=== PATIENT | female | born 1955 | race Caucasian/White ===

== ENCOUNTER 2019-01-01 16:30 | Emergency (ER) | payer MEDICARE, OTHER ==
[~2019-01-01] VITALS: Ht 165.1 cm; Wt 84.1 kg
[~2019-01-01 16:30] MED LIST: HYDR-3780 PO; HYDR-4383 PO; PANT40TA4 PO; SULI200T97 PO; SYN0.088T PO
[2019-01-01 16:47] VITALS: BP 175/97
[2019-01-01] MEDS ORDERED: LOPE2CAP PO (17:27)
== END 2019-01-01 17:38 | disposition home or self-care (01) ==
LOC: ER 16:31
DX: R19.7 Diarrhea, unspecified (principal); T37.0X5A Adverse effect of sulfonamides, initial encounter; G43.909 Migraine, unspecified, not intractable, without status migrainosus; I25.2 Old myocardial infarction; J44.9 Chronic obstructive pulmonary disease, unspecified; K21.9 Gastro-esophageal reflux disease without esophagitis; E03.9 Hypothyroidism, unspecified; G89.29 Other chronic pain; M06.9 Rheumatoid arthritis, unspecified; Z98.61 Coronary angioplasty status; Z90.49 Acquired absence of other specified parts of digestive tract; Z98.890 Other specified postprocedural states; Z88.0 Allergy status to penicillin; Z88.2 Allergy status to sulfonamides; Z88.1 Allergy status to other antibiotic agents; Z91.011 Allergy to milk products; Z88.8 Allergy status to other drugs, medicaments and biological substances; Z79.899 Other long term (current) drug therapy; Z60.2 Problems related to living alone; Y92.89 Other specified places as the place of occurrence of the external cause
CPT/HCPCS: 99282

== ENCOUNTER 2019-06-17 15:59 | Emergency (ER) | payer MEDICARE ==
[~2019-06-17] VITALS: Ht 165.1 cm; Wt 79.5 kg
[~2019-06-17 15:59] MED LIST changes: +ALBU18HF2 INH; +LOPE2CAP PO
[2019-06-17] MEDS ORDERED: dexamethasone sod phosphate 10mg/ml inj IV STA (16:31)
[2019-06-17] MEDS ORDERED: ondansetron/PF 4mg/2ml inj IV ONE (16:35)
[2019-06-17] MEDS ORDERED: metoprolol tartrate 1mg/ml inj IV ONE (16:35)
[2019-06-17] MEDS ORDERED: ketorolac tromethamine 15mg/ml inj. IV ONE (16:35)
[2019-06-17] MEDS ORDERED: normal saline 1000ML IV soln IVB ONE (16:35)
[2019-06-17] MEDS ORDERED: morphine 4 MG/ML inj SYRINge IV ONE (19:10)
[2019-06-17 20:22] VITALS: BP 139/89
== END 2019-06-17 20:25 | disposition home or self-care (01) ==
LOC: ER 16:00
DX: G43.909 Migraine, unspecified, not intractable, without status migrainosus (principal); R42 Dizziness and giddiness; I25.2 Old myocardial infarction; J44.9 Chronic obstructive pulmonary disease, unspecified; K21.9 Gastro-esophageal reflux disease without esophagitis; E03.9 Hypothyroidism, unspecified; G89.29 Other chronic pain; M06.9 Rheumatoid arthritis, unspecified; Z90.49 Acquired absence of other specified parts of digestive tract; Z98.61 Coronary angioplasty status; Z98.890 Other specified postprocedural states; Z88.0 Allergy status to penicillin; Z88.2 Allergy status to sulfonamides; Z88.1 Allergy status to other antibiotic agents; Z88.6 Allergy status to analgesic agent; Z91.011 Allergy to milk products; Z88.8 Allergy status to other drugs, medicaments and biological substances; Z79.899 Other long term (current) drug therapy
CPT/HCPCS: 96361; 96374; 96375; 99283; J1100; J1885; J2270; J2405; J7030; 99285; J3490

== ENCOUNTER 2019-06-20 14:40 | Inpatient (IN) | payer MEDICARE ==
[~2019-06-20] VITALS: Ht 165.1 cm; Wt 84.6 kg
[2019-06-20 15:35] LABS: BASOPHILS # (AUTO) 0.1 X10'3 (0-0.2); BASOPHILS % (AUTO) 0.7 % (0-1); HEMOGLOBIN 12.9 g/dl (12.0-16.0); MONOCYTES # (AUTO) 1.5 X10'3 (0-0.9); NEUTROPHILS % (AUTO) 63.7 % (42-75)
[2019-06-20 15:36] LABS: EOSINOPHILS # (AUTO) 0.2 X10'3 (0-0.9); EOSINOPHILS % (AUTO) 1.6 % (0-6); HEMATOCRIT 38.3 % (35.0-45.0); LYMPHOCYTES % (AUTO) 22.8 % (21-51); MEAN CORPUSCULAR HGB CONC 33.6 g/dL (33.0-36.5); MEAN CORPUSCULAR VOLUME 95.1 FL (78-98); MEAN PLATELET VOLUME 11.2 FL (7.4-10.4); MONOCYTES % (AUTO) 11.2 % (2-12); NEUTROPHILS # (AUTO) 8.3 X10'3 (1.8-7.7); PLATELET COUNT 161 X10'3 (140-440); RED BLOOD COUNT 4.03 X10'6 (4.20-5.60); RED CELL DISTRIBUTION WIDTH 12.6 % (11.5-14.5)
[2019-06-20 15:49] LABS: PARTIAL THROMBOPLASTIN TIME 23 SECONDS (22-32)
[2019-06-20 15:52] LABS: ALANINE AMINOTRANSFERASE 34 U/L (12-78); ALBUMIN 3.5 G/DL (3.4-5.0); ALBUMIN/GLOBULIN RATIO 1.1 (1.1-1.5); ALKALINE PHOSPHATASE 120 IU/L (46-116); ANION GAP 9 (8-16); ASPARTATE AMINO TRANSFERASE 29 U/L (10-37); BILIRUBIN,TOTAL 0.4 MG/DL (0.1-1.0); BLOOD UREA NITROGEN 17 MG/DL (7-18); BUN/CREATININE RATIO 12.3 (6.6-38.0); CALCIUM 8.2 MG/DL (8.5-10.1); CHLORIDE 109 MMOL/L (99-107); CREATININE 1.38 MG/DL (0.40-0.90); GLUCOSE 84 MG/DL (70-104); POTASSIUM 3.3 MMOL/L (3.5-5.1); SODIUM 145 MMOL/L (135-145); TOTAL CARBON DIOXIDE 27.1 MMOL/L (24-32); TOTAL PROTEIN 6.8 G/DL (6.4-8.2); eGFR 39 ML/MIN
[2019-06-20 16:06] LABS: LARGE PLATELETS FEW; PLATELET ESTIMATE NORMAL
[2019-06-20] MEDS ORDERED: mag hydrox/Alum hydrox/simeth 30ml oral suspension PO ONE (17:00)
[2019-06-20] MEDS ORDERED: LIDOcaine Viscous 15ml cup PO ONE (17:00)
[2019-06-20] MEDS ORDERED: famotidine 20mg tablet PO ONE (17:00)
[2019-06-20 17:37] LABS: LIPASE 57 U/L (73-393)
[2019-06-20] MEDS ORDERED: mag hydrox/Alum hydrox/simeth 30ml oral suspension PO PRN (18:05)
[2019-06-20] MEDS: K and/or MAG REPLACEMENT MC SCH (18:05)
[2019-06-20] MEDS ORDERED: potassium Cl 20 mEq SR tablet PO PRN (18:05)
[2019-06-20] MEDS ORDERED: ondansetron/PF 4mg/2ml inj IV PRN (18:05)
[2019-06-20] MEDS ORDERED: magnesium Cl slow-release 64mg tablet PO PRN (18:05)
[2019-06-20] MEDS ORDERED: magnesium 2GM in 50ml NS 50 ML IV PRN (18:05)
[2019-06-20] MEDS ORDERED: acetaminophen 325mg tablet PO PRN (18:05)
[2019-06-20] MEDS ORDERED: regadenoson 0.4mg/5ml syringe IV PRN (18:05)
[2019-06-20] MEDS ORDERED: diphenhydrAMINE 25mg capsule PO PRN (18:05)
[2019-06-20] MEDS ORDERED: nitroGLYCERIN 0.4mg SUBLingual tab SL PRN (18:05)
[2019-06-20] MEDS ORDERED: magnesium 4gm in 100ml NS 100 ML IV PRN (18:05)
[2019-06-20] MEDS ORDERED: morphine 2 MG/ML inj. syringe IV PRN ×2 (18:05)
[2019-06-20] MEDS ORDERED: aminophylline 250mg/10ml inj. IV PRN (18:05)
[2019-06-20] MEDS ORDERED: magnesium hydroxide 30ml (MOM) UD suspension PO PRN (18:05)
[2019-06-20] MEDS ORDERED: HYDROcodone/acetaminophen 5mg/325mg tablet PO PRN (18:05)
[2019-06-20] MEDS ORDERED: potassium CL 10mEq/100ml bag 100 ML IV PRN ×2 (18:05)
[2019-06-20] MEDS ORDERED: metoprolol tartrate 1mg/ml inj IV PRN (18:05)
[2019-06-20] MEDS ORDERED: HYDROcodone/acetaminophen 10/325mg tab PO PRN (18:05)
[2019-06-20] MEDS ORDERED: bisacodyl 10mg suppository rectal RC PRN (18:05)
[2019-06-20] MEDS ORDERED: aspirin 325mg tablet PO ONE (18:10)
[2019-06-20] MEDS: normal saline 1000ml 1,000 ML IV SCH ×2 (18:18→21:16)
[2019-06-20] MEDS ORDERED: ALBU8.5H8 INH (18:37)
[2019-06-20] MEDS ORDERED: OMEP40CA13 PO (19:10)
[2019-06-20] MEDS ORDERED: HYDR10TA PO (19:14)
[2019-06-20] MEDS ORDERED: ONDA4TAB6 PO (19:18)
[2019-06-20] MEDS ORDERED: temazepam 15mg capsule PO PRN (21:00)
[2019-06-20] MEDS: heparin, porcine 5000 units/ml vial SQ SCH (21:12)
[2019-06-20] MEDS: nitroGLYCERIN 0.4mg SUBLingual tab SL PRN (21:15)
[2019-06-20] MEDS: potassium Cl 20 mEq SR tablet PO PRN (21:17)
[2019-06-20 22:30] VITALS: BP 193/90
--- NOTE | 2019-06-20 22:30 | NUR ---
Patient arrived to unit at approximately 2230 via gurney. Patient ambulated to hospital bed, vital signs taken, tele box 57 placed on patient, MRSA swab completed, 2 RN skin check complete, DART complete.
[2019-06-20 22:35] VITALS: BP 207/87
[2019-06-20 22:40] VITALS: BP 161/74
[2019-06-20] MEDS: amLODIPine 5mg tablet PO SCH (23:37)
[2019-06-20] MEDS: pantoprazole 40 MG vial IV SCH (23:38)
[2019-06-20 23:59] LABS: CLARITY,URINE CLEAR (Clear); COLOR,URINE YELLOW (Yellow); GLUCOSE, URINE NEGATIVE (Neg); KETONES,URINE NEGATIVE (Neg); LEUKOCYTE ESTERASE ,URINE NEGATIVE (Neg); NITRITES, URINE NEGATIVE (Neg); OCCULT BLOOD,URINE NEGATIVE (Neg); PROTEIN,URINE NEGATIVE (Neg); UROBILINOGEN,URINE 0.2 E.U/dL (0.2-1.0)
[2019-06-21] VITALS (21 sets, daily range): BP systolic 101–211; BP diastolic 54–95
[2019-06-21 00:02] LABS: UA COLLECTION TYPE NON-SPECIFIED
[2019-06-21] MEDS: potassium Cl 20 mEq SR tablet PO PRN (01:24)
[2019-06-21] MEDS: nitroGLYCERIN 0.4mg SUBLingual tab SL PRN ×2 (02:05→02:14)
[2019-06-21] MEDS: acetaminophen 325mg tablet PO PRN (02:07)
[2019-06-21 05:42] LABS: BASOPHILS # (AUTO) 0.1 X10'3 (0-0.2); BASOPHILS % (AUTO) 0.8 % (0-1); EOSINOPHILS # (AUTO) 0.4 X10'3 (0-0.9); EOSINOPHILS % (AUTO) 4.2 % (0-6); HEMATOCRIT 37.4 % (35.0-45.0); HEMOGLOBIN 12.7 g/dl (12.0-16.0); LYMPHOCYTES # (AUTO) 2.6 X10'3 (1.1-4.8); LYMPHOCYTES % (AUTO) 25.4 % (21-51); MEAN CORPUSCULAR HEMOGLOBIN 32.2 PG (27.0-31.0); MEAN CORPUSCULAR HGB CONC 33.9 g/dL (33.0-36.5); MEAN CORPUSCULAR VOLUME 94.9 FL (78-98); MEAN PLATELET VOLUME 11.7 FL (7.4-10.4); MONOCYTES # (AUTO) 1.1 X10'3 (0-0.9); NEUTROPHILS # (AUTO) 6.1 X10'3 (1.8-7.7); NEUTROPHILS % (AUTO) 58.6 % (42-75); PLATELET COUNT 146 X10'3 (140-440); RED BLOOD COUNT 3.94 X10'6 (4.20-5.60); RED CELL DISTRIBUTION WIDTH 12.9 % (11.5-14.5); WHITE BLOOD COUNT 10.3 X10'3 (4.5-11.0)
--- NOTE | 2019-06-21 06:23 | NUR ---
Patient in room PCU 3012. I have received report from DEBORAH Bower and had the opportunity to ask questions and assume patient care.
--- NOTE | 2019-06-21 06:29 | NUR ---
Problems reprioritized. Patient report given, questions answered & plan of care reviewed with DEBORAH Keller .
[2019-06-21 06:36] LABS: ALANINE AMINOTRANSFERASE 28 U/L (12-78); ALBUMIN 3.1 G/DL (3.4-5.0); ALKALINE PHOSPHATASE 108 IU/L (46-116); ANION GAP 9 (8-16); ASPARTATE AMINO TRANSFERASE 23 U/L (10-37); BILIRUBIN,TOTAL 0.7 MG/DL (0.1-1.0); BLOOD UREA NITROGEN 14 MG/DL (7-18); BUN/CREATININE RATIO 13.2 (6.6-38.0); CALCIUM 8.4 MG/DL (8.5-10.1); CHLORIDE 110 MMOL/L (99-107); CREATININE 1.06 MG/DL (0.40-0.90); GLUCOSE 77 MG/DL (70-104); POTASSIUM 3.9 MMOL/L (3.5-5.1); SODIUM 146 MMOL/L (135-145); TOTAL CARBON DIOXIDE 27.4 MMOL/L (24-32); TOTAL PROTEIN 6.1 G/DL (6.4-8.2); eGFR 53 ML/MIN
[2019-06-21 06:44] LABS: CHOL/HDL RATIO 2.8 (0.00-4.99); CHOLESTEROL 165 MG/DL (0-200); HDL CHOLESTEROL 59 MG/DL (35-60); LDL CHOLESTEROL 83 MG/DL (50-100); MAGNESIUM 2.1 MG/DL (1.5-2.4); PHOSPHORUS 3.4 MG/DL (2.3-4.5); TRIGLYCERIDES 146 MG/DL (20-135)
[2019-06-21] MEDS: pantoprazole 40 MG vial IV SCH (07:01)
[2019-06-21] MEDS: amLODIPine 5mg tablet PO SCH (07:33)
[2019-06-21] MEDS: heparin, porcine 5000 units/ml vial SQ SCH ×2 (08:00→19:42)
[2019-06-21] MEDS: nitroGLYCERIN 0.2mg/hour patch TD SCH (08:00)
[2019-06-21] MEDS: K and/or MAG REPLACEMENT MC SCH (08:00)
[2019-06-21] MEDS: normal saline 1000ml 1,000 ML IV SCH (08:06)
[2019-06-21] MEDS ORDERED: pneumococcal 23-VAL P-sac vacc 25 mcg/0.5ml vial IMVAC ONE (10:00)
[2019-06-21] MEDS ORDERED: non-formulary drug (Ondansetron Hcl (Zofran) 1 TAB) PO PRN (11:55)
[2019-06-21] MEDS ORDERED: ondansetron 4mg rapidly disintigrating tab PO PRN (12:00)
--- NOTE | 2019-06-21 12:45 | NUR ---
pt arrived back from [facility]. VSS, headache, was medicated for pain, lunch provided. Will continue to monitor
[2019-06-21] MEDS: lisinopril 20mg tablet PO SCH (12:49)
--- NOTE | 2019-06-21 13:44 | NUR ---
Malnutrition consult: Pt admit w/ chest pain hx COPD, CVA, and pancreatitis. Pt current wt 175kg supposed to be [address] d/w RN. RN agrees to scaled wt today since no scaled wt this admit. Pt has normal strength, no edema/wounds, no significant wt hx present, and NPO at this time for test. At this time pt lacks minimum malnutrition criteria. Will continue to monitor. Addendum: 06/21/19 at [address] Amended: Links added.
[2019-06-21] MEDS: levoTHYROXINE 88mcg tablet PO SCH (16:09)
[2019-06-21] MEDS ORDERED: NOR5T PO (18:05)
[2019-06-21] MEDS ORDERED: LISI-600 PO (18:05)
--- NOTE | 2019-06-21 18:36 | NUR ---
Problems reprioritized. Patient report given, questions answered & plan of care reviewed with DEBORAH Maldonado.
--- NOTE | 2019-06-21 18:50 | NUR ---
Patient in room PCU 3012. I have received report from Joel CABRERA, and had the opportunity to ask questions and assume patient care.
[2019-06-21] MEDS: hydrocortisone 10mg tablet PO SCH (20:29)
--- NOTE | 2019-06-21 22:30 | NUR ---
Patient in room PCU 3012. I have received report from Joel CABRERA and had the opportunity to ask questions and assume patient care.
[2019-06-22] VITALS (8 sets, daily range): BP systolic 90–146; BP diastolic 53–101
--- NOTE | 2019-06-22 03:30 | NUR ---
pt c/o of tightness on chest and SOB, contacted Dr. Jackson and got an once time order of albuterol breathing tx
[2019-06-22] MEDS: acetaminophen 325mg tablet PO PRN (04:34)
[2019-06-22] MEDS ORDERED: albuterol 2.5 MG/3 ML nebule NEB ONE (05:30)
[2019-06-22] MEDS: pantoprazole 40 MG vial IV SCH ×2 (05:30→08:00)
--- NOTE | 2019-06-22 06:13 | NUR ---
Problems reprioritized. Patient report given, questions answered & plan of care reviewed with Matty CABRERA.
[2019-06-22 06:16] LABS: BASOPHILS # (AUTO) 0.1 X10'3 (0-0.2); EOSINOPHILS % (AUTO) 7.2 % (0-6)
[2019-06-22 06:20] LABS: BASOPHILS % (AUTO) 0.9 % (0-1); EOSINOPHILS # (AUTO) 0.7 X10'3 (0-0.9); HEMATOCRIT 40.9 % (35.0-45.0); HEMOGLOBIN 13.8 g/dl (12.0-16.0); LYMPHOCYTES # (AUTO) 2.1 X10'3 (1.1-4.8); LYMPHOCYTES % (AUTO) 19.8 % (21-51); MEAN CORPUSCULAR HEMOGLOBIN 32.2 PG (27.0-31.0); MEAN CORPUSCULAR HGB CONC 33.8 g/dL (33.0-36.5); MEAN CORPUSCULAR VOLUME 95.4 FL (78-98); MEAN PLATELET VOLUME 11.9 FL (7.4-10.4); MONOCYTES # (AUTO) 0.8 X10'3 (0-0.9); MONOCYTES % (AUTO) 7.7 % (2-12); NEUTROPHILS # (AUTO) 6.7 X10'3 (1.8-7.7); NEUTROPHILS % (AUTO) 64.4 % (42-75); PLATELET COUNT 192 X10'3 (140-440); RED BLOOD COUNT 4.29 X10'6 (4.20-5.60); WHITE BLOOD COUNT 10.3 X10'3 (4.5-11.0)
[2019-06-22 06:35] LABS: ALANINE AMINOTRANSFERASE 27 U/L (12-78); ALBUMIN 3.4 G/DL (3.4-5.0); ALKALINE PHOSPHATASE 122 IU/L (46-116); ANION GAP 8 (8-16); ASPARTATE AMINO TRANSFERASE 20 U/L (10-37); BILIRUBIN,TOTAL 0.9 MG/DL (0.1-1.0); BLOOD UREA NITROGEN 12 MG/DL (7-18); BUN/CREATININE RATIO 11.3 (6.6-38.0); CALCIUM 8.7 MG/DL (8.5-10.1); CHLORIDE 105 MMOL/L (99-107); CREATININE 1.06 MG/DL (0.40-0.90); GLUCOSE 93 MG/DL (70-104); PHOSPHORUS 3.6 MG/DL (2.3-4.5); POTASSIUM 4.6 MMOL/L (3.5-5.1); SODIUM 141 MMOL/L (135-145); TOTAL CARBON DIOXIDE 28.3 MMOL/L (24-32); TOTAL PROTEIN 6.9 G/DL (6.4-8.2); eGFR 53 ML/MIN
[2019-06-22 07:11] LABS: GIANT PLATELET FEW; LARGE PLATELETS FEW; PLATELET ESTIMATE NORMAL
[2019-06-22] MEDS: levoTHYROXINE 88mcg tablet PO SCH (07:22)
[2019-06-22] MEDS: hydrocortisone 10mg tablet PO SCH (07:24)
[2019-06-22] MEDS ORDERED: pantoprazole 40mg Tablet.DR PO SCH (07:30)
[2019-06-22] MEDS: amLODIPine 5mg tablet PO SCH (08:00)
[2019-06-22] MEDS: nitroGLYCERIN 0.2mg/hour patch TD SCH (08:00)
[2019-06-22] MEDS ORDERED: non-formulary drug (Omeprazole (Prilosec) 1 CAP) PO SCH (08:00)
[2019-06-22] MEDS: K and/or MAG REPLACEMENT MC SCH (08:00)
[2019-06-22] MEDS: lisinopril 20mg tablet PO SCH (08:00)
--- NOTE | 2019-06-22 08:50 | NUR ---
PAGER ID: [phone] MESSAGE: [phone] Nicki Connolly: TAHIRA Bp is 90/53, rechecked manually and is 94/54, asymptamatic, held AM Scheduled Norvas and Zestril. Thanks Yudith [id number] Addendum: 06/22/19 at 0911 by Yudith Kumar RN Received orders from Dr. Coleman for NS Bolus
[2019-06-22] MEDS: heparin, porcine 5000 units/ml vial SQ SCH (08:52)
[2019-06-22] MEDS ORDERED: LISI10TA4 PO (08:55)
[2019-06-22] MEDS ORDERED: AMLO5TAB16 PO (08:55)
[2019-06-22] MEDS ORDERED: normal saline 1000ml 1,000 ML IV ONE (09:05)
--- NOTE | 2019-06-22 09:05 | NUR ---
Did not administer 0800 Protonix d/t previous dose was administered @ 0530 per pharmacy, aware
[2019-06-22] MEDS ORDERED: MIDAZolam 5mg/5ml vial ONE (09:39)
[2019-06-22] MEDS ORDERED: fentaNYL/PF 50MCG/1 ML 2ML syringe ONE (09:39)
[2019-06-22] MEDS ORDERED: LIDOcaine Viscous 15ml cup ONE (09:39)
--- NOTE | 2019-06-22 14:34 | NUR ---
Pt stable for discharge per md order, discharge instructions reviewed with patient and , new medication prescription, called in to [facility] pharmacy per pt preference, tele monitor 57 removed and returned, PIV dc'ed and clean dry dressing in place, all belongings w/ pt at time of discharge, pt walked down to [facility] w/ hospital staff, pt discharge @ 1430 w/ in private vehicle.
[2019-06-23] MEDS ORDERED: lisinopril 10 MG tablet PO SCH (08:00)
[2019-06-23] MEDS ORDERED: amLODIPine 5mg tablet PO SCH (08:00)
== END 2019-06-22 14:45 | disposition home or self-care (01) | DRG 392 ==
LOC: ER 14:41 → PCU 3S 20:54
PROVIDERS: ADMIT Family Medicine; ATTEND Family Medicine
PROC: 3E0234Z Introduction of Serum, Toxoid and Vaccine into Muscle, Percutaneous Approach (ICD-10-PCS; principal; 2019-06-21)
PROC: 4A02XM4 Measurement of Cardiac Total Activity, External Approach (ICD-10-PCS; 2019-06-21)
PROC: 3E033HZ Introduction of Radioactive Substance into Peripheral Vein, Percutaneous Approach (ICD-10-PCS; 2019-06-21)
PROC: 0DB48ZX Excision of Esophagogastric Junction, Via Natural or Artificial Opening Endoscopic, Diagnostic (ICD-10-PCS; 2019-06-22)
PROC: 0DB68ZX Excision of Stomach, Via Natural or Artificial Opening Endoscopic, Diagnostic (ICD-10-PCS; 2019-06-22)
DX: K29.70 Gastritis, unspecified, without bleeding (principal); I16.1 Hypertensive emergency; Z68.44 Body mass index [BMI] 60.0-69.9, adult; E03.9 Hypothyroidism, unspecified; I25.10 Atherosclerotic heart disease of native coronary artery without angina pectoris; J44.9 Chronic obstructive pulmonary disease, unspecified; M06.9 Rheumatoid arthritis, unspecified; Z96.611 Presence of right artificial shoulder joint; K21.0 Gastro-esophageal reflux disease with esophagitis; K22.8 Other specified diseases of esophagus; Z96.612 Presence of left artificial shoulder joint; Z60.2 Problems related to living alone; G43.909 Migraine, unspecified, not intractable, without status migrainosus; G89.29 Other chronic pain; Z88.0 Allergy status to penicillin; Z88.2 Allergy status to sulfonamides; Z88.1 Allergy status to other antibiotic agents; Z88.8 Allergy status to other drugs, medicaments and biological substances; Z79.899 Other long term (current) drug therapy; Z79.890 Hormone replacement therapy; Z23 Encounter for immunization; I25.2 Old myocardial infarction; Z87.11 Personal history of peptic ulcer disease; Z82.49 Family history of ischemic heart disease and other diseases of the circulatory system; Z87.891 Personal history of nicotine dependence; Z90.49 Acquired absence of other specified parts of digestive tract; Z98.891 History of uterine scar from previous surgery; N19 Unspecified kidney failure
CPT/HCPCS: 36415; 43239; 71045; 78452; 80053; 80061; 81003; 83036; 83690; 83735; 84100; 84443; 84484; 85025; 85610; 85730; 87081; 88305; 93005; 93017; 93306; 94640; 94760; 97161; 97530; 99152; 99285; A4620; A9500; C9113; G0378; J0280; J1644; J2250; J2270; J2785; J3010; J3490; J7030; J7040

== ENCOUNTER 2019-06-24 23:17 | Emergency (ER) | payer MEDICARE ==
[~2019-06-24] VITALS: Ht 165.1 cm; Wt 84.0 kg
[~2019-06-24 23:17] MED LIST changes: +ALBU8.5H8 INH; +AMLO5TAB16 PO; +HYDR10TA PO; +LISI-600 PO; +LISI10TA4 PO; +NOR5T PO; +OMEP40CA13 PO; +ONDA4TAB6 PO
[2019-06-24] MEDS ORDERED: ondansetron/PF 4mg/2ml inj IV ONE (23:40)
[2019-06-24] MEDS ORDERED: morphine 4 MG/ML inj SYRINge IV PRN (23:40)
[2019-06-24] MEDS ORDERED: normal saline 1000ML IV soln IVB ONE (23:40)
[2019-06-24] MEDS ORDERED: mag hydrox/Alum hydrox/simeth 30ml oral suspension PO ONE (23:45)
[2019-06-24] MEDS ORDERED: famotidine 20mg tablet PO ONE (23:45)
[2019-06-24] MEDS ORDERED: LIDOcaine Viscous 15ml cup PO ONE (23:45)
--- NOTE | 2019-06-25 00:12 | NUR ---
PT WITH PIV AND LABS DRAWN, AT BEDSIDE. PT WITH STABLE VS. JUST GIVEN GI COCKTAIL, ZOFRAN AND PEPCID AND MORPHINE.
[2019-06-25 00:14] LABS: EOSINOPHILS # (AUTO) 0.6 X10'3 (0-0.9); HEMOGLOBIN 13.9 g/dl (12.0-16.0); WHITE BLOOD COUNT 10.3 X10'3 (4.5-11.0)
[2019-06-25 00:15] LABS: BASOPHILS # (AUTO) 0.2 X10'3 (0-0.2); BASOPHILS % (AUTO) 1.5 % (0-1); EOSINOPHILS % (AUTO) 5.4 % (0-6); HEMATOCRIT 41.2 % (35.0-45.0); LYMPHOCYTES # (AUTO) 2.6 X10'3 (1.1-4.8); LYMPHOCYTES % (AUTO) 24.7 % (21-51); MEAN CORPUSCULAR HEMOGLOBIN 31.8 PG (27.0-31.0); MEAN CORPUSCULAR HGB CONC 33.7 g/dL (33.0-36.5); MEAN CORPUSCULAR VOLUME 94.4 FL (78-98); MEAN PLATELET VOLUME 10.9 FL (7.4-10.4); MONOCYTES # (AUTO) 1.1 X10'3 (0-0.9); MONOCYTES % (AUTO) 10.9 % (2-12); NEUTROPHILS % (AUTO) 57.5 % (42-75); PLATELET COUNT 206 X10'3 (140-440); RED BLOOD COUNT 4.37 X10'6 (4.20-5.60); RED CELL DISTRIBUTION WIDTH 12.9 % (11.5-14.5)
[2019-06-25 00:44] LABS: ALANINE AMINOTRANSFERASE 29 U/L (12-78); ALBUMIN 3.6 G/DL (3.4-5.0); ALBUMIN/GLOBULIN RATIO 0.9 (1.1-1.5); ALKALINE PHOSPHATASE 125 IU/L (46-116); ANION GAP 12 (8-16); ASPARTATE AMINO TRANSFERASE 42 U/L (10-37); BILIRUBIN,TOTAL 0.3 MG/DL (0.1-1.0); BLOOD UREA NITROGEN 18 MG/DL (7-18); BUN/CREATININE RATIO 15.9 (6.6-38.0); CALCIUM 9.5 MG/DL (8.5-10.1); CHLORIDE 104 MMOL/L (99-107); CREATININE 1.13 MG/DL (0.40-0.90); GLUCOSE 82 MG/DL (70-104); LIPASE 100 U/L (73-393); SODIUM 140 MMOL/L (135-145); TOTAL CARBON DIOXIDE 23.6 MMOL/L (24-32); TOTAL PROTEIN 7.5 G/DL (6.4-8.2); eGFR 49 ML/MIN
[2019-06-25 00:45] LABS: URINE HCG NEGATIVE (NEG)
[2019-06-25 00:45] LABS: POTASSIUM 4.3 MMOL/L (3.5-5.1)
[2019-06-25 01:04] LABS: CLARITY,URINE CLEAR (Clear); COLOR,URINE YELLOW (Yellow); GLUCOSE, URINE NEGATIVE (Neg); KETONES,URINE TRACE mg/dl (Neg); LEUKOCYTE ESTERASE ,URINE SMALL (Neg); NITRITES, URINE NEGATIVE (Neg); OCCULT BLOOD,URINE NEGATIVE (Neg); PH,URINE 7.5 (4.8-8.0); PROTEIN,URINE NEGATIVE (Neg); UROBILINOGEN,URINE 0.2 E.U/dL (0.2-1.0)
[2019-06-25 01:06] LABS: UA COLLECTION TYPE CLN CATCH MIDSTREAM
[2019-06-25] MEDS ORDERED: PANT-47 PO (01:19)
[2019-06-25 01:21] LABS: BACTERIA,URINE FEW /HPF (Neg); MUCUS STRANDS NONE SEEN /LPF (Neg); RBC,URINE 0-2 /HPF (0-2); SQUAMOUS EPITHELIAL CELL,UR FEW /LPF (FEW); WBC,URINE 0-4 /HPF (0-4)
[2019-06-25 01:37] VITALS: BP 155/86
[2019-06-25 06:26] LABS: LARGE PLATELETS FEW; PLATELET ESTIMATE NORMAL
== END 2019-06-25 01:39 | disposition home or self-care (01) ==
LOC: ER 23:18
DX: R10.13 Epigastric pain (principal); R10.33 Periumbilical pain; G43.909 Migraine, unspecified, not intractable, without status migrainosus; E78.00 Pure hypercholesterolemia, unspecified; I10 Essential (primary) hypertension; I25.2 Old myocardial infarction; J44.9 Chronic obstructive pulmonary disease, unspecified; K21.9 Gastro-esophageal reflux disease without esophagitis; E03.9 Hypothyroidism, unspecified; G89.29 Other chronic pain; M06.9 Rheumatoid arthritis, unspecified; Z95.5 Presence of coronary angioplasty implant and graft; Z90.49 Acquired absence of other specified parts of digestive tract; Z98.890 Other specified postprocedural states; Z88.0 Allergy status to penicillin; Z88.2 Allergy status to sulfonamides; Z88.1 Allergy status to other antibiotic agents; Z88.6 Allergy status to analgesic agent; Z79.899 Other long term (current) drug therapy
CPT/HCPCS: 36415; 74176; 80053; 81001; 81025; 83690; 85025; 87088; 93005; 96374; 96375; 99284; J2270; J2405; J7030

== ENCOUNTER 2019-06-28 13:39 | Emergency (ER) | payer MEDICARE ==
[~2019-06-28] VITALS: Ht 165.1 cm; Wt 84.0 kg
[~2019-06-28 13:39] MED LIST changes: -ALBU18HF2 INH; -ALBU8.5H8 INH; -HYDR-3780 PO; -HYDR-4383 PO; -LISI-600 PO; -LOPE2CAP PO; -NOR5T PO; +PANT-47 PO; -PANT40TA4 PO
[2019-06-28 14:52] LABS: ALANINE AMINOTRANSFERASE 29 U/L (12-78); ALBUMIN/GLOBULIN RATIO 1.1 (1.1-1.5); ALKALINE PHOSPHATASE 115 IU/L (46-116); AMYLASE 58 U/L (25-115); ANION GAP 10 (8-16); ASPARTATE AMINO TRANSFERASE 29 U/L (10-37); BILIRUBIN,TOTAL 0.5 MG/DL (0.1-1.0); BLOOD UREA NITROGEN 12 MG/DL (7-18); BUN/CREATININE RATIO 10.2 (6.6-38.0); CALCIUM 8.9 MG/DL (8.5-10.1); CHLORIDE 105 MMOL/L (99-107); CREATININE 1.18 MG/DL (0.40-0.90); GLUCOSE 84 MG/DL (70-104); LIPASE 94 U/L (73-393); POTASSIUM 4.5 MMOL/L (3.5-5.1); SODIUM 140 MMOL/L (135-145); TOTAL CARBON DIOXIDE 25.3 MMOL/L (24-32); TOTAL PROTEIN 7.6 G/DL (6.4-8.2); eGFR 46 ML/MIN
[2019-06-28 14:55] LABS: EOSINOPHILS # (AUTO) 0.2 X10'3 (0-0.9); HEMOGLOBIN 14.5 g/dl (12.0-16.0); MONOCYTES # (AUTO) 0.6 X10'3 (0-0.9)
[2019-06-28 14:56] LABS: BASOPHILS # (AUTO) 0.1 X10'3 (0-0.2); BASOPHILS % (AUTO) 1.1 % (0-1); EOSINOPHILS % (AUTO) 2.2 % (0-6); HEMATOCRIT 43.5 % (35.0-45.0); LYMPHOCYTES # (AUTO) 1.8 X10'3 (1.1-4.8); LYMPHOCYTES % (AUTO) 23.4 % (21-51); MEAN CORPUSCULAR HEMOGLOBIN 31.7 PG (27.0-31.0); MEAN CORPUSCULAR HGB CONC 33.3 g/dL (33.0-36.5); MEAN CORPUSCULAR VOLUME 95.1 FL (78-98); MEAN PLATELET VOLUME 11.6 FL (7.4-10.4); MONOCYTES % (AUTO) 7.1 % (2-12); NEUTROPHILS # (AUTO) 5.1 X10'3 (1.8-7.7); NEUTROPHILS % (AUTO) 66.2 % (42-75); PLATELET COUNT 224 X10'3 (140-440); RED BLOOD COUNT 4.57 X10'6 (4.20-5.60); RED CELL DISTRIBUTION WIDTH 12.8 % (11.5-14.5); WHITE BLOOD COUNT 7.8 X10'3 (4.5-11.0)
[2019-06-28 15:27] LABS: LARGE PLATELETS FEW; PLATELET ESTIMATE NORMAL
[2019-06-28] MEDS ORDERED: dicyclomine 10 MG capsule PO ONE (15:35)
[2019-06-28] MEDS ORDERED: mag hydrox/Alum hydrox/simeth 30ml oral suspension PO ONE (15:35)
[2019-06-28] MEDS ORDERED: normal saline 1000ML IV soln IVB ONE (15:35)
[2019-06-28] MEDS ORDERED: LIDOcaine Viscous 15ml cup MM PRN (15:35)
[2019-06-28] MEDS ORDERED: DICY10CA88 PO (16:18)
[2019-06-28] MEDS ORDERED: LIDO20SO16 PO (16:18)
[2019-06-28 16:27] LABS: CLARITY,URINE CLEAR (Clear); COLOR,URINE YELLOW (Yellow); GLUCOSE, URINE NEGATIVE (Neg); KETONES,URINE NEGATIVE (Neg); LEUKOCYTE ESTERASE ,URINE NEGATIVE (Neg); NITRITES, URINE NEGATIVE (Neg); OCCULT BLOOD,URINE NEGATIVE (Neg); PROTEIN,URINE NEGATIVE (Neg); UROBILINOGEN,URINE 0.2 E.U/dL (0.2-1.0)
[2019-06-28 16:35] LABS: UA COLLECTION TYPE CLN CATCH MIDSTREAM
[2019-06-28 16:57] VITALS: BP 156/85
== END 2019-06-28 16:58 | disposition home or self-care (01) ==
LOC: ER 13:39
DX: R10.13 Epigastric pain (principal); R11.2 Nausea with vomiting, unspecified; G43.909 Migraine, unspecified, not intractable, without status migrainosus; E78.00 Pure hypercholesterolemia, unspecified; I10 Essential (primary) hypertension; I25.10 Atherosclerotic heart disease of native coronary artery without angina pectoris; J44.9 Chronic obstructive pulmonary disease, unspecified; K21.9 Gastro-esophageal reflux disease without esophagitis; E03.9 Hypothyroidism, unspecified; G89.29 Other chronic pain; M06.9 Rheumatoid arthritis, unspecified; Z95.5 Presence of coronary angioplasty implant and graft; Z90.49 Acquired absence of other specified parts of digestive tract; Z98.890 Other specified postprocedural states; Z88.0 Allergy status to penicillin; Z88.2 Allergy status to sulfonamides; Z88.1 Allergy status to other antibiotic agents; Z88.6 Allergy status to analgesic agent; Z91.011 Allergy to milk products; Z79.899 Other long term (current) drug therapy
CPT/HCPCS: 36415; 80053; 81003; 82150; 83690; 85025; 85610; 99284; J7030

== ENCOUNTER 2019-07-03 05:18 | Emergency (ER) | payer MEDICARE ==
[~2019-07-03] VITALS: Ht 165.1 cm; Wt 81.0 kg
[~2019-07-03 05:18] MED LIST changes: +DICY10CA88 PO; +LIDO20SO16 PO
[2019-07-03] MEDS ORDERED: methylPREDNISolone sod succ 125mg/2ml vial IV ONE (05:45)
[2019-07-03] MEDS ORDERED: ipratropium/albuterol 3ml nebule NEB ONE (05:45)
[2019-07-03] MEDS ORDERED: albuterol 2.5 MG/3 ML nebule NEB ONE (05:45)
[2019-07-03] MEDS ORDERED: normal saline 1000ML IV soln IV ONE (06:00)
[2019-07-03 06:16] LABS: BASOPHILS # (AUTO) 0.1 X10'3 (0-0.2); BASOPHILS % (AUTO) 0.6 % (0-1); EOSINOPHILS # (AUTO) 0.7 X10'3 (0-0.9); EOSINOPHILS % (AUTO) 5.6 % (0-6); HEMATOCRIT 40.6 % (35.0-45.0); HEMOGLOBIN 13.8 g/dl (12.0-16.0); LYMPHOCYTES # (AUTO) 1.8 X10'3 (1.1-4.8); LYMPHOCYTES % (AUTO) 13.8 % (21-51); MEAN CORPUSCULAR HEMOGLOBIN 32.2 PG (27.0-31.0); MEAN CORPUSCULAR HGB CONC 33.9 g/dL (33.0-36.5); MEAN PLATELET VOLUME 11.4 FL (7.4-10.4); MONOCYTES % (AUTO) 8.1 % (2-12); NEUTROPHILS # (AUTO) 9.2 X10'3 (1.8-7.7); NEUTROPHILS % (AUTO) 71.9 % (42-75); PLATELET COUNT 209 X10'3 (140-440); RED BLOOD COUNT 4.27 X10'6 (4.20-5.60); RED CELL DISTRIBUTION WIDTH 12.5 % (11.5-14.5); WHITE BLOOD COUNT 12.7 X10'3 (4.5-11.0)
[2019-07-03 06:43] LABS: ALANINE AMINOTRANSFERASE 24 U/L (12-78); ALBUMIN 3.4 G/DL (3.4-5.0); ALBUMIN/GLOBULIN RATIO 0.9 (1.1-1.5); ALKALINE PHOSPHATASE 104 IU/L (46-116); ANION GAP 10 (8-16); BILIRUBIN,TOTAL 0.9 MG/DL (0.1-1.0); BLOOD UREA NITROGEN 10 MG/DL (7-18); BUN/CREATININE RATIO 8.3 (6.6-38.0); CALCIUM 8.6 MG/DL (8.5-10.1); CHLORIDE 106 MMOL/L (99-107); CREATININE 1.21 MG/DL (0.40-0.90); GLUCOSE 84 MG/DL (70-104); SODIUM 141 MMOL/L (135-145); TOTAL CARBON DIOXIDE 24.6 MMOL/L (24-32); TOTAL PROTEIN 7.3 G/DL (6.4-8.2); eGFR 45 ML/MIN
[2019-07-03 06:51] LABS: MAGNESIUM 1.8 MG/DL (1.5-2.4)
[2019-07-03 06:53] LABS: ASPARTATE AMINO TRANSFERASE 31 U/L (10-37); POTASSIUM 4.4 MMOL/L (3.5-5.1)
[2019-07-03 06:55] LABS: LARGE PLATELETS FEW; PLATELET ESTIMATE NORMAL
[2019-07-03 08:25] LABS: CLARITY,URINE CLEAR (Clear); COLOR,URINE YELLOW (Yellow); PH,URINE 5.5 (4.8-8.0); UA COLLECTION TYPE CLN CATCH MIDSTREAM
[2019-07-03 08:26] LABS: GLUCOSE, URINE NEGATIVE (Neg); KETONES,URINE NEGATIVE (Neg); LEUKOCYTE ESTERASE ,URINE SMALL (Neg); NITRITES, URINE NEGATIVE (Neg); OCCULT BLOOD,URINE NEGATIVE (Neg); PROTEIN,URINE NEGATIVE (Neg); UROBILINOGEN,URINE 0.2 E.U/dL (0.2-1.0)
[2019-07-03 08:27] LABS: RBC,URINE NONE SEEN /HPF (0-2)
[2019-07-03 08:28] LABS: BACTERIA,URINE FEW /HPF (Neg); MUCUS STRANDS NONE SEEN /LPF (Neg); SQUAMOUS EPITHELIAL CELL,UR FEW /LPF (FEW); WBC CLUMPS,URINE FEW /HPF (NEGATIVE)
[2019-07-03] MEDS ORDERED: CEPH500C5 PO (09:42)
[2019-07-03 09:59] VITALS: BP 103/59
== END 2019-07-03 10:00 | disposition home or self-care (01) ==
LOC: ER 05:22
DX: N39.0 Urinary tract infection, site not specified (principal); J45.909 Unspecified asthma, uncomplicated; J44.9 Chronic obstructive pulmonary disease, unspecified; K21.9 Gastro-esophageal reflux disease without esophagitis; E03.9 Hypothyroidism, unspecified; G89.29 Other chronic pain; M06.9 Rheumatoid arthritis, unspecified; G43.909 Migraine, unspecified, not intractable, without status migrainosus; E78.00 Pure hypercholesterolemia, unspecified; I10 Essential (primary) hypertension; I25.2 Old myocardial infarction; G47.30 Sleep apnea, unspecified; Z79.899 Other long term (current) drug therapy; Z88.0 Allergy status to penicillin; Z88.2 Allergy status to sulfonamides; Z88.1 Allergy status to other antibiotic agents; Z88.8 Allergy status to other drugs, medicaments and biological substances; Z88.6 Allergy status to analgesic agent; Z91.011 Allergy to milk products; Z79.2 Long term (current) use of antibiotics; Z98.84 Bariatric surgery status; Z95.5 Presence of coronary angioplasty implant and graft; Z90.49 Acquired absence of other specified parts of digestive tract; Z98.890 Other specified postprocedural states; Z60.2 Problems related to living alone
CPT/HCPCS: 36415; 71045; 80053; 81001; 83605; 83735; 83880; 84145; 84484; 85025; 87088; 87502; 87503; 93005; 94640; 94760; 96374; 99284; J2930; J7030

== ENCOUNTER 2019-07-06 12:55 | Emergency (ER) | payer MEDICARE ==
[~2019-07-06] VITALS: Ht 165.1 cm; Wt 84.1 kg
[~2019-07-06 12:55] MED LIST changes: +CEPH500C5 PO
[2019-07-06 13:22] VITALS: BP 140/86
[2019-07-06] MEDS ORDERED: ketorolac trometh inj. 60 MG/2 ML VIAL IM ONE (14:55)
[2019-07-06] MEDS ORDERED: HYDR-4383 PO (14:55)
== END 2019-07-06 15:45 | disposition home or self-care (01) ==
LOC: ER 12:55
DX: S33.5XXA Sprain of ligaments of lumbar spine, initial encounter (principal); S93.601A Unspecified sprain of right foot, initial encounter; R11.0 Nausea; G43.909 Migraine, unspecified, not intractable, without status migrainosus; E78.00 Pure hypercholesterolemia, unspecified; I10 Essential (primary) hypertension; I25.2 Old myocardial infarction; J44.9 Chronic obstructive pulmonary disease, unspecified; K21.9 Gastro-esophageal reflux disease without esophagitis; E03.9 Hypothyroidism, unspecified; G89.29 Other chronic pain; M06.9 Rheumatoid arthritis, unspecified; M25.552 Pain in left hip; G47.30 Sleep apnea, unspecified; Z88.0 Allergy status to penicillin; Z88.2 Allergy status to sulfonamides; Z88.8 Allergy status to other drugs, medicaments and biological substances; Z88.6 Allergy status to analgesic agent; Z79.899 Other long term (current) drug therapy; Z79.2 Long term (current) use of antibiotics; Z90.49 Acquired absence of other specified parts of digestive tract; Z98.890 Other specified postprocedural states; Z95.5 Presence of coronary angioplasty implant and graft; Z60.2 Problems related to living alone; Z87.19 Personal history of other diseases of the digestive system; W18.39XA Other fall on same level, initial encounter; Y93.01 Activity, walking, marching and hiking; Y92.89 Other specified places as the place of occurrence of the external cause; Y99.8 Other external cause status
CPT/HCPCS: 72100; 73502; 73660; 96372; 99283; J1885

== ENCOUNTER 2019-07-12 13:17 | Emergency (ER) | payer MEDICARE ==
[~2019-07-12] VITALS: Ht 165.1 cm; Wt 84.3 kg
[~2019-07-12 13:17] MED LIST changes: -CEPH500C5 PO; +HYDR-4383 PO; +LIDOcaine 1% W/epiNEPHrine 1:100,000 20ml vial ONE
[2019-07-12 13:28] VITALS: BP 162/64
[2019-07-12] MEDS ORDERED: HYDR-3965 PO (13:52)
== END 2019-07-12 14:33 | disposition home or self-care (01) ==
LOC: ER 13:18
DX: M54.5 Low back pain (principal); G89.29 Other chronic pain; G43.909 Migraine, unspecified, not intractable, without status migrainosus; E78.00 Pure hypercholesterolemia, unspecified; I10 Essential (primary) hypertension; I25.2 Old myocardial infarction; J44.9 Chronic obstructive pulmonary disease, unspecified; K21.9 Gastro-esophageal reflux disease without esophagitis; E03.9 Hypothyroidism, unspecified; M06.9 Rheumatoid arthritis, unspecified; Z98.61 Coronary angioplasty status; Z90.49 Acquired absence of other specified parts of digestive tract; Z98.890 Other specified postprocedural states; Z60.2 Problems related to living alone; Z88.0 Allergy status to penicillin; Z88.2 Allergy status to sulfonamides; Z88.1 Allergy status to other antibiotic agents; Z88.6 Allergy status to analgesic agent; Z91.011 Allergy to milk products; Z79.899 Other long term (current) drug therapy; W18.39XA Other fall on same level, initial encounter; Y93.89 Activity, other specified; Y92.89 Other specified places as the place of occurrence of the external cause; Y99.8 Other external cause status
CPT/HCPCS: 20552; 99284

== ENCOUNTER 2019-09-20 12:08 | Emergency (ER) | payer MEDICARE ==
[~2019-09-20] VITALS: Ht 165.1 cm; Wt 79.5 kg
[~2019-09-20 12:08] MED LIST changes: -LIDOcaine 1% W/epiNEPHrine 1:100,000 20ml vial ONE
[2019-09-20 12:49] VITALS: BP 150/75
[2019-09-20] MEDS ORDERED: GUAI120L55 PO (13:29)
== END 2019-09-20 13:42 | disposition home or self-care (01) ==
LOC: ER 12:09
DX: J06.9 Acute upper respiratory infection, unspecified (principal); G43.909 Migraine, unspecified, not intractable, without status migrainosus; E78.00 Pure hypercholesterolemia, unspecified; I10 Essential (primary) hypertension; I25.2 Old myocardial infarction; J44.9 Chronic obstructive pulmonary disease, unspecified; K21.9 Gastro-esophageal reflux disease without esophagitis; E03.9 Hypothyroidism, unspecified; Z98.61 Coronary angioplasty status; Z90.49 Acquired absence of other specified parts of digestive tract; Z98.890 Other specified postprocedural states; Z60.2 Problems related to living alone; Z88.0 Allergy status to penicillin; Z88.2 Allergy status to sulfonamides; Z88.1 Allergy status to other antibiotic agents; Z91.011 Allergy to milk products; Z79.899 Other long term (current) drug therapy; Z88.8 Allergy status to other drugs, medicaments and biological substances
CPT/HCPCS: 99283

== ENCOUNTER 2019-10-30 17:45 | Emergency (ER) | payer MEDICARE ==
[~2019-10-30] VITALS: Ht 165.1 cm; Wt 80.0 kg
[~2019-10-30 17:45] MED LIST changes: +GUAI120L55 PO
[2019-10-30 19:51] LABS: BASOPHILS # (AUTO) 0.1 X10'3 (0-0.2); EOSINOPHILS # (AUTO) 0.4 X10'3 (0-0.9); MEAN CORPUSCULAR HEMOGLOBIN 30.3 PG (27.0-31.0); MONOCYTES # (AUTO) 0.7 X10'3 (0-0.9)
[2019-10-30 19:53] LABS: BASOPHILS % (AUTO) 0.9 % (0-1); EOSINOPHILS % (AUTO) 3.8 % (0-6); HEMATOCRIT 39.2 % (35.0-45.0); HEMOGLOBIN 13.4 g/dl (12.0-16.0); LYMPHOCYTES % (AUTO) 21.3 % (21-51); MEAN CORPUSCULAR HGB CONC 34.2 g/dL (33.0-36.5); MEAN CORPUSCULAR VOLUME 88.6 FL (78-98); MEAN PLATELET VOLUME 11.3 FL (7.4-10.4); MONOCYTES % (AUTO) 7.7 % (2-12); NEUTROPHILS # (AUTO) 6.1 X10'3 (1.8-7.7); NEUTROPHILS % (AUTO) 66.3 % (42-75); PLATELET COUNT 172 X10'3 (140-440); RED BLOOD COUNT 4.42 X10'6 (4.20-5.60); RED CELL DISTRIBUTION WIDTH 13.4 % (11.5-14.5); WHITE BLOOD COUNT 9.3 X10'3 (4.5-11.0)
[2019-10-30 19:55] LABS: ALANINE AMINOTRANSFERASE 24 U/L (12-78); ALBUMIN 3.5 G/DL (3.4-5.0); ALKALINE PHOSPHATASE 144 IU/L (46-116); ANION GAP 8 (8-16); ASPARTATE AMINO TRANSFERASE 31 U/L (10-37); BILIRUBIN,TOTAL 0.3 MG/DL (0.1-1.0); BLOOD UREA NITROGEN 19 MG/DL (7-18); BUN/CREATININE RATIO 17.1 (6.6-38.0); CALCIUM 8.8 MG/DL (8.5-10.1); CHLORIDE 107 MMOL/L (99-107); CREATININE 1.11 MG/DL (0.40-0.90); GLUCOSE 105 MG/DL (70-104); POTASSIUM 4.1 MMOL/L (3.5-5.1); SODIUM 142 MMOL/L (135-145); TOTAL CARBON DIOXIDE 27.5 MMOL/L (24-32); TOTAL PROTEIN 6.9 G/DL (6.4-8.2); eGFR 50 ML/MIN
[2019-10-30 19:56] LABS: LIPASE 157 U/L (73-393)
--- NOTE | 2019-10-30 20:19 | NUR ---
PT UP OUT OF BED FOR URINE SAMPLE
[2019-10-30] MEDS ORDERED: pantoprazole 40 MG vial IV ONE (20:20)
[2019-10-30] MEDS ORDERED: morphine 2 MG/ML inj. syringe IV PRN (20:20)
[2019-10-30] MEDS ORDERED: normal saline 1000ML IV soln IVB ONE ×2 (20:20)
[2019-10-30] MEDS ORDERED: metoclopramide 5 mg/ml inj IV ONE (20:20)
[2019-10-30 20:50] LABS: CLARITY,URINE CLEAR (Clear); COLOR,URINE STRAW (Yellow); GLUCOSE, URINE NEGATIVE (Neg); KETONES,URINE NEGATIVE (Neg); LEUKOCYTE ESTERASE ,URINE SMALL (Neg); NITRITES, URINE NEGATIVE (Neg); OCCULT BLOOD,URINE NEGATIVE (Neg); PROTEIN,URINE NEGATIVE (Neg); UROBILINOGEN,URINE 0.2 E.U/dL (0.2-1.0)
[2019-10-30 20:57] LABS: UA COLLECTION TYPE CLN CATCH MIDSTREAM
[2019-10-30 20:59] LABS: BACTERIA,URINE NONE SEEN /HPF (Neg); RBC,URINE 0-2 /HPF (0-2); SQUAMOUS EPITHELIAL CELL,UR FEW /LPF (FEW)
[2019-10-30] MEDS ORDERED: mag hydrox/Alum hydrox/simeth 30ml oral suspension PO ONE (21:15)
[2019-10-30] MEDS ORDERED: LIDOcaine Viscous 15ml cup MM ONE (21:15)
[2019-10-30] MEDS ORDERED: PROC25SU31 RC (21:21)
[2019-10-30] MEDS ORDERED: PANT-47 PO (21:21)
[2019-10-30 21:52] VITALS: BP 147/74
== END 2019-10-30 22:30 | disposition home or self-care (01) ==
LOC: ER 17:46
DX: G89.29 Other chronic pain (principal); R10.13 Epigastric pain; R10.11 Right upper quadrant pain; R11.2 Nausea with vomiting, unspecified; R19.7 Diarrhea, unspecified; G43.909 Migraine, unspecified, not intractable, without status migrainosus; E78.00 Pure hypercholesterolemia, unspecified; I10 Essential (primary) hypertension; I25.2 Old myocardial infarction; J44.9 Chronic obstructive pulmonary disease, unspecified; K21.9 Gastro-esophageal reflux disease without esophagitis; E03.9 Hypothyroidism, unspecified; M19.90 Unspecified osteoarthritis, unspecified site; Z98.61 Coronary angioplasty status; Z90.49 Acquired absence of other specified parts of digestive tract; Z98.890 Other specified postprocedural states; Z60.2 Problems related to living alone; Z88.0 Allergy status to penicillin; Z88.2 Allergy status to sulfonamides; Z88.1 Allergy status to other antibiotic agents; Z79.899 Other long term (current) drug therapy; Z88.6 Allergy status to analgesic agent; Z88.8 Allergy status to other drugs, medicaments and biological substances; Z86.73 Personal history of transient ischemic attack (TIA), and cerebral infarction without residual deficits
CPT/HCPCS: 36415; 80053; 81001; 83690; 85025; 87088; 96361; 96374; 96375; 99283; C9113; J2270; J2765; J7030

== ENCOUNTER 2019-11-13 11:25 | Emergency (ER) | payer MEDICARE ==
[~2019-11-13] VITALS: Ht 165.1 cm; Wt 79.5 kg
[~2019-11-13 11:25] MED LIST changes: +PROC25SU31 RC
[2019-11-13] MEDS ORDERED: ondansetron 4mg rapidly disintigrating tab PO STA (15:17)
[2019-11-13 15:18] LABS: BASOPHILS # (AUTO) 0.1 X10'3 (0-0.2); EOSINOPHILS # (AUTO) 0.5 X10'3 (0-0.9); MONOCYTES # (AUTO) 0.9 X10'3 (0-0.9); NEUTROPHILS # (AUTO) 4.6 X10'3 (1.8-7.7); NEUTROPHILS % (AUTO) 55.9 % (42-75)
[2019-11-13 15:19] LABS: BASOPHILS % (AUTO) 1.5 % (0-1); EOSINOPHILS % (AUTO) 5.5 % (0-6); HEMATOCRIT 44.2 % (35.0-45.0); HEMOGLOBIN 15.1 g/dl (12.0-16.0); LYMPHOCYTES # (AUTO) 2.2 X10'3 (1.1-4.8); MEAN CORPUSCULAR HEMOGLOBIN 30.5 PG (27.0-31.0); MEAN CORPUSCULAR HGB CONC 34.2 g/dL (33.0-36.5); MEAN CORPUSCULAR VOLUME 89.3 FL (78-98); MEAN PLATELET VOLUME 10.7 FL (7.4-10.4); MONOCYTES % (AUTO) 11.1 % (2-12); PLATELET COUNT 203 X10'3 (140-440); RED BLOOD COUNT 4.95 X10'6 (4.20-5.60); RED CELL DISTRIBUTION WIDTH 13.4 % (11.5-14.5); WHITE BLOOD COUNT 8.3 X10'3 (4.5-11.0)
[2019-11-13] MEDS ORDERED: pantoprazole 40mg Tablet.DR PO ONE (15:20)
[2019-11-13] MEDS ORDERED: mag hydrox/Alum hydrox/simeth 30ml oral suspension PO ONE (15:20)
[2019-11-13] MEDS ORDERED: LIDOcaine Viscous 15ml cup MM ONE (15:20)
[2019-11-13 15:31] LABS: ALANINE AMINOTRANSFERASE 19 U/L (12-78); ALBUMIN 3.5 G/DL (3.4-5.0); ALKALINE PHOSPHATASE 111 IU/L (46-116); ANION GAP 11 (8-16); ASPARTATE AMINO TRANSFERASE 30 U/L (10-37); BILIRUBIN,TOTAL 0.7 MG/DL (0.1-1.0); BLOOD UREA NITROGEN 10 MG/DL (7-18); BUN/CREATININE RATIO 8.3 (6.6-38.0); CALCIUM 9.5 MG/DL (8.5-10.1); CHLORIDE 107 MMOL/L (99-107); GLUCOSE 81 MG/DL (70-104); LIPASE 82 U/L (73-393); POTASSIUM 3.5 MMOL/L (3.5-5.1); SODIUM 145 MMOL/L (135-145); TOTAL CARBON DIOXIDE 26.7 MMOL/L (24-32); TOTAL PROTEIN 7.1 G/DL (6.4-8.2); eGFR 45 ML/MIN
[2019-11-13 15:35] LABS: LARGE PLATELETS FEW; PLATELET ESTIMATE NORMAL
[2019-11-13 17:18] VITALS: BP 146/73
[2019-11-13 17:18] LABS: CLARITY,URINE CLOUDY (Clear); COLOR,URINE YELLOW (Yellow); GLUCOSE, URINE NEGATIVE (Neg); KETONES,URINE TRACE mg/dl (Neg); LEUKOCYTE ESTERASE ,URINE SMALL (Neg); NITRITES, URINE NEGATIVE (Neg); OCCULT BLOOD,URINE TRACE-INTACT (Neg); PH,URINE 5.5 (4.8-8.0); PROTEIN,URINE NEGATIVE (Neg); UA COLLECTION TYPE CLN CATCH MIDSTREAM; URINE HCG NEGATIVE (NEG); UROBILINOGEN,URINE 0.2 E.U/dL (0.2-1.0)
[2019-11-13 17:24] LABS: MUCUS STRANDS MANY /LPF (Neg); SQUAMOUS EPITHELIAL CELL,UR FEW /LPF (FEW)
[2019-11-13 17:25] LABS: BACTERIA,URINE 1+ /HPF (Neg); CAL OXALATE CRYSTALS 2+ /HPF (NEGATIVE); RBC,URINE 0-2 /HPF (0-2); WBC,URINE 50-100 /HPF (0-4)
[2019-11-13] MEDS ORDERED: NITR100C6 PO (17:40)
[2019-11-13] MEDS ORDERED: MAGN30OR PO (17:52)
[2019-11-15] MEDS ORDERED: PROC25SU31 RC (13:13)
[2019-11-15] MEDS ORDERED: PANT40TA4 PO (17:12)
== END 2019-11-13 18:09 | disposition home or self-care (01) ==
LOC: ER 11:26
DX: K29.70 Gastritis, unspecified, without bleeding (principal); N39.0 Urinary tract infection, site not specified; G43.909 Migraine, unspecified, not intractable, without status migrainosus; E78.00 Pure hypercholesterolemia, unspecified; I10 Essential (primary) hypertension; J44.9 Chronic obstructive pulmonary disease, unspecified; K21.9 Gastro-esophageal reflux disease without esophagitis; E03.9 Hypothyroidism, unspecified; G89.29 Other chronic pain; M06.9 Rheumatoid arthritis, unspecified; Z98.61 Coronary angioplasty status; Z86.73 Personal history of transient ischemic attack (TIA), and cerebral infarction without residual deficits; Z90.49 Acquired absence of other specified parts of digestive tract; Z60.2 Problems related to living alone; Z98.890 Other specified postprocedural states; Z88.0 Allergy status to penicillin; Z88.2 Allergy status to sulfonamides; Z88.8 Allergy status to other drugs, medicaments and biological substances; Z91.011 Allergy to milk products; Z79.899 Other long term (current) drug therapy
CPT/HCPCS: 36415; 80053; 81001; 81025; 83690; 85025; 87088; 99284

== ENCOUNTER → 2019-11-18 | Emergency (ER) | payer MEDICARE, OTHER ==
[~2019-11-18] VITALS: Ht 165.1 cm; Wt 81.8 kg
[~2019-11-18] MED LIST changes: -AMLO5TAB16 PO; +CEPH500C5 PO; -DICY10CA88 PO; -GUAI120L55 PO; -HYDR-4383 PO; +LEVO500T2 PO; -LIDO20SO16 PO; -LISI10TA4 PO; -OMEP40CA13 PO; -PANT-47 PO; +PANT40TA4 PO; -SULI200T97 PO; +aspirin 325mg tablet PO ONE; +iohexol 350MG/ML 100ml bottle IV ONE
[2019-11-18] MEDS: nitroGLYCERIN 0.4mg SUBLingual tab SL PRN ×3 (01:52→02:40)
[2019-11-18 02:02] LABS: BASOPHILS % (AUTO) 0.4 % (0-1); EOSINOPHILS # (AUTO) 0.2 X10'3 (0-0.9); EOSINOPHILS % (AUTO) 1.7 % (0-6); HEMATOCRIT 37.3 % (35.0-45.0); HEMOGLOBIN 12.6 g/dl (12.0-16.0); LYMPHOCYTES # (AUTO) 1.3 X10'3 (1.1-4.8); LYMPHOCYTES % (AUTO) 13.9 % (21-51); MEAN CORPUSCULAR HEMOGLOBIN 30.3 PG (27.0-31.0); MEAN CORPUSCULAR HGB CONC 33.9 g/dL (33.0-36.5); MEAN CORPUSCULAR VOLUME 89.4 FL (78-98); MEAN PLATELET VOLUME 10.9 FL (7.4-10.4); MONOCYTES # (AUTO) 0.7 X10'3 (0-0.9); MONOCYTES % (AUTO) 7.9 % (2-12); NEUTROPHILS # (AUTO) 6.9 X10'3 (1.8-7.7); NEUTROPHILS % (AUTO) 76.1 % (42-75); PLATELET COUNT 177 X10'3 (140-440); RED BLOOD COUNT 4.17 X10'6 (4.20-5.60); RED CELL DISTRIBUTION WIDTH 13.1 % (11.5-14.5); WHITE BLOOD COUNT 9.1 X10'3 (4.5-11.0)
[2019-11-18 02:09] LABS: ALANINE AMINOTRANSFERASE 12 U/L (12-78); ALBUMIN 2.9 G/DL (3.4-5.0); ALBUMIN/GLOBULIN RATIO 0.9 (1.1-1.5); ALKALINE PHOSPHATASE 72 IU/L (46-116); ANION GAP 9 (8-16); ASPARTATE AMINO TRANSFERASE 14 U/L (10-37); BILIRUBIN,TOTAL 0.4 MG/DL (0.1-1.0); BLOOD UREA NITROGEN 11 MG/DL (7-18); BUN/CREATININE RATIO 9.1 (6.6-38.0); CALCIUM 8.3 MG/DL (8.5-10.1); CHLORIDE 112 MMOL/L (99-107); CREATININE 1.21 MG/DL (0.40-0.90); GLUCOSE 91 MG/DL (70-104); POTASSIUM 3.6 MMOL/L (3.5-5.1); SODIUM 144 MMOL/L (135-145); TOTAL CARBON DIOXIDE 23.5 MMOL/L (24-32); TOTAL PROTEIN 6.1 G/DL (6.4-8.2); eGFR 45 ML/MIN
[2019-11-18 02:22] LABS: LARGE PLATELETS MODERATE; PLATELET ESTIMATE NORMAL
[2019-11-18 02:23] LABS: GIANT PLATELET FEW
[2019-11-18 03:16] LABS: D-DIMER 2.55 MG/L FEU (0-0.50)
--- NOTE | 2019-11-18 03:37 | NUR ---
MD AWARE OF THE PATIENT'S BP. HE ORDERED A CTA.
[2019-11-18 06:00] VITALS: BP 186/101
== END | disposition home or self-care (01) ==
LOC: ER 00:59
DX: R07.89 Other chest pain (principal); G43.909 Migraine, unspecified, not intractable, without status migrainosus; E78.00 Pure hypercholesterolemia, unspecified; I10 Essential (primary) hypertension; J44.9 Chronic obstructive pulmonary disease, unspecified; K21.9 Gastro-esophageal reflux disease without esophagitis; E03.9 Hypothyroidism, unspecified; G89.29 Other chronic pain; M06.9 Rheumatoid arthritis, unspecified; Z98.61 Coronary angioplasty status; Z86.73 Personal history of transient ischemic attack (TIA), and cerebral infarction without residual deficits; Z90.49 Acquired absence of other specified parts of digestive tract; Z98.890 Other specified postprocedural states; Z88.0 Allergy status to penicillin; Z88.2 Allergy status to sulfonamides; Z91.011 Allergy to milk products; Z88.8 Allergy status to other drugs, medicaments and biological substances; Z79.899 Other long term (current) drug therapy
CPT/HCPCS: 36415; 71045; 71275; 80053; 84484; 85025; 85379; 93005; 99285; Q9967